=== PATIENT | female | born 1970 | race African-American/Black ===

== ENCOUNTER 2017-01-28 07:25 | Emergency (ER) | payer BC ==
[~2017-01-28] VITALS: Ht 165.1 cm; Wt 60.0 kg
[2017-01-28] MEDS ORDERED: IBUPROFEN 800MG TABLET PO ONE (08:30)
[2017-01-28] MEDS ORDERED: HYDROCODONE/ACETAMINOPHEN 10/325MG TABLET PO ONE (10:15)
[2017-01-28] MEDS ORDERED: LIDOCAINE HCL 1% 20ML VIAL (Pyxis) INJ INFIL ONE ×2 (10:15→12:45)
[2017-01-28] MEDS ORDERED: TETANUS, DIPHTHERIA, PERTUSSIS VAC/PF 0.5ML (>7YR OLD) IM ONE (10:15)
[2017-01-28 10:26] VITALS: BP 135/90
[2017-01-28] MEDS ORDERED: BACITRACIN ZINC OINT UDPKT TOP ONE (12:15)
[2017-01-28] MEDS ORDERED: LIDOCAINE HCL 1% 20ML VIAL (Pyxis) INJ ONE (12:23)
== END 2017-01-28 13:38 | disposition home or self-care (01) ==
LOC: ER 07:44
DX: S42.252A Displaced fracture of greater tuberosity of left humerus, initial encounter for closed fracture (principal); S81.012A Laceration without foreign body, left knee, initial encounter; H40.9 Unspecified glaucoma; V49.88XA Car occupant (driver) (passenger) injured in other specified transport accidents, initial encounter; Y93.89 Activity, other specified; Y92.89 Other specified places as the place of occurrence of the external cause; Y99.8 Other external cause status
CPT/HCPCS: 12002; 73030; 73562; 99284; J3490; A4565